=== PATIENT | female | born 1955 | race Caucasian/White ===

== ENCOUNTER 2021-01-21 05:36 | Inpatient (IN) | payer MEDICARE ==
[2021-01-21] MEDS ORDERED: Sodium Chloride 0.9% 10 ML Syringe FLUSH PRN (05:37)
--- NOTE | 2021-01-21 06:00 | EDM.PDOC ---
ED HPI GENERAL MEDICAL PROBLEM - General Chief Complaint: Respiratory Problem Stated Complaint: MEDICAL VIA [place] Time Seen by Provider: 01/21/21 05:37 Source of Information: Reports: Patient, EMS History Limitations: Reports: No Limitations - History of Present Illness INITIAL COMMENTS - FREE TEXT/NARRATIVE: Ysabel is a 65-year-old female presenting to the ED via [facility] for evaluation of generalized weakness, syncopal episode, diarrhea, cough, shortness of breath, headache and body aches, and diminished appetite. The patient's symptoms started shortly after (8 days ago). She had a very large family gathering for the holidays and her was symptomatic with Covid-like symptoms the day before with loss of taste or smell and thought that he simply had a sinus infection. Neither of them are vaccinated for COVID- 19, nor do they take any precautions including masking. This evening, the patient reports that she went to the bathroom because she was having diarrhea and became increasingly weak causing her to have a near syncopal episode and slumped to the floor. Her called 911. Neither of them have been feeling very well since . It is unclear whether the patient actually has had loss of taste or smell as she really has not answered that question despite me asking it several times. 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 - Infectious Disease History Infectious Disease History: Reports: Chicken Pox, Measles, Mumps, Novel Coronavirus - Past Surgical History HEENT Surgical History: Reports: Cataract Surgery, Other (See Below) Other HEENT Surgeries/Procedures: lens implants Musculoskeletal Surgical History: Reports: Other (See Below) Other Musculoskeletal Surgeries/Procedures:: bunions removed, hammer toe surgery Social & Family History - Tobacco Use Tobacco Use Status *Q: Former Tobacco User Used Tobacco, but Quit: Yes Month/Year Tobacco Last Used: 2010 - Caffeine Use Caffeine Use: Reports: Coffee Caffeine Use Comment: 1 cup per day - Alcohol Use Days Per Week of Alcohol Use: 7 Number of Drinks Per Day: 3 Total Drinks Per Week: 21 - Recreational Drug Use Recreational Drug Use: No ED ROS GENERAL - Review of Systems Review Of Systems: See Below Constitutional: Reports: Fever, Chills, Malaise, Weakness, Decreased Appetite HEENT: Reports: No Symptoms Respiratory: Reports: Shortness of Breath, Cough Cardiovascular: Reports: Lightheadedness, Syncope Endocrine: Reports: Fatigue GI/Abdominal: Reports: Abdominal Pain (Generalized), Diarrhea, Decreased Appetite, Nausea. Denies: Vomiting : Reports: No Symptoms Musculoskeletal: Reports: Muscle Pain Skin: Reports: No Symptoms Neurological: Reports: Headache Psychiatric: Reports: Anxiety Hematologic/Lymphatic: Reports: No Symptoms Immunologic: Reports: No Symptoms ED EXAM, GENERAL - Physical Exam Exam: See Below Exam Limited By: No Limitations General Appearance: Alert, Anxious, Mild Distress Eye Exam: Bilateral Eye: EOMI, PERRL Nose: Nasal Swelling, Nasal Drainage Throat/Mouth: Normal Inspection, Normal Oropharynx, Normal Voice, No Airway Compromise Head: Atraumatic, Normocephalic Neck: Normal Inspection, Supple. No: Lymphadenopathy (R), Lymphadenopathy (L) Respiratory/Chest: No Respiratory Distress, No Accessory Muscle Use, Crackles (Diffuse bilateral crackles in the bases), Rhonchi (Bilateral). No: Retractions Cardiovascular: Normal Peripheral Pulses, Regular Rate, Rhythm, No Murmur Peripheral Pulses: 2+: Radial (L), Radial (R) GI/Abdominal: Normal Bowel Sounds, Soft, Non-Tender. No: Guarding, Rigid, Rebound Extremities: Normal Inspection Neurological: Alert, Oriented, Normal Cognition, No Motor/Sensory Deficits Psychiatric: Normal Affect, Anxious Skin Exam: Warm, Dry, Intact, Normal Color #1 Interpretation EKG Date: 01/21/21 Time: 05:49 Rhythm: NSR Rate (Beats/Min): 69 [place]: Normal P-Wave: Present QRS: Normal (Poor R wave progression in the precordial leads) ST-T: Normal QT: Normal Comparison: NA - No Prior EKG Course - Vital Signs Last Recorded V/S: Last Vital Signs Temp 37.4 C 01/21/21 05:44 Pulse 66 01/21/21 07:07 Resp 18 01/21/21 06:39 BP 103/65 01/21/21 07:07 Pulse Ox 93 L 01/21/21 07:07 - Orders/Labs/Meds Orders: Active Orders 24 hr Category Date Time Status Chest 1V Frontal [CR] Stat Exams 01/21/21 05:37 Taken Lactated Ringers [Ringers, Lactated] 1,000 ml Med 01/21/21 06:15 Active IV ASDIRECTED Sodium Chloride 0.9% [Saline Flush] Med 01/21/21 05:37 Active 10 ml FLUSH ASDIRECTED PRN Isolation [COMM] Stat Oth 01/21/21 05:38 Ordered Saline Lock Insert [OM.PC] Routine Oth 01/21/21 05:37 Ordered EKG 12 Lead [EK] Routine Ther 01/21/21 05:39 Ordered Medication Orders Lactated Ringer's (Ringers, Lactated) 1,000 mls @ 500 mls/hr IV ASDIRECTED NANCY Last Admin: 01/21/21 06:27 Dose: 500 mls/hr Documented by: KILO Sodium Chloride (Sodium Chloride 0.9% 10 Ml Syringe) 10 ml FLUSH ASDIRECTED PRN PRN Reason: Keep Vein Open Last Admin: 01/21/21 06:27 Dose: 10 ml Documented by: KILO Labs: Laboratory Tests 01/21/21 01/21/21 01/21/21 Range/Units 05:50 05:50 05:50 WBC 4.3 L (4.5-11.0) K/uL RBC 4.07 (3.30-5.50) M/uL Hgb 12.6 (12.0-15.0) g/dL Hct 36.5 (36.0-48.0) % MCV 90 (80-98) fL MCH 31 (27-31) pg MCHC 35 (32-36) % Plt Count 180 (150-400) K/uL Neut % (Auto) 80.9 H (36-66) % Lymph % (Auto) 14.9 L (24-44) % [place] % (Auto) 3.7 (2-6) % Eos % (Auto) 0.0 L (2-4) % Baso % (Auto) 0.5 (0-1) % D-Dimer, Quantitative 1037.87 H (0.0-500.0) ng/mL Sodium 134 L (140-148) mmol/L Potassium 3.2 L (3.6-5.2) mmol/L Chloride 97 L (100-108) mmol/L Carbon Dioxide 25 (21-32) mmol/L Anion Gap 15.2 H (5.0-14.0) mmol/L BUN 22 H (7-18) mg/dL Creatinine 1.1 H (0.6-1.0) mg/dL Est Cr Clr Drug Dosing 54.40 mL/min Estimated GFR (MDRD) 50 L (>60) Glucose 115 H (74-106) mg/dL Lactic Acid (0.4-2.0) mmol/L Calcium 8.1 L (8.5-10.1) mg/dL Ferritin 657 H (8-388) ng/ml Total Bilirubin 0.3 (0.2-1.0) mg/dL AST 62 H (15-37) U/L ALT 49 (12-78) U/L Alkaline Phosphatase 60 (46-116) U/L Lactate Dehydrogenase 364 H (82-234) U/L C-Reactive Protein 3.93 H (0.0-0.3) mg/dL Total Protein 7.0 (6.4-8.2) g/dL Albumin 3.3 L (3.4-5.0) g/dL Globulin 3.7 H (2.3-3.5) g/dL Albumin/Globulin Ratio 0.9 L (1.2-2.2) Procalcitonin ng/mL Influenza Type A RNA (NEGATIVE) RSV RNA (INAAT) (NEGATIVE) Influenza Type B RNA (NEGATIVE) SARS-CoV-2 RNA (ADRIAN) (NEGATIVE) 01/21/21 01/21/21 01/21/21 Range/Units 05:50 05:50 05:55 WBC (4.5-11.0) K/uL RBC (3.30-5.50) M/uL Hgb (12.0-15.0) g/dL Hct (36.0-48.0) % MCV (80-98) fL MCH (27-31) pg MCHC (32-36) % Plt Count (150-400) K/uL Neut % (Auto) (36-66) % Lymph % (Auto) (24-44) % [place] % (Auto) (2-6) % Eos % (Auto) (2-4) % Baso % (Auto) (0-1) % D-Dimer, Quantitative (0.0-500.0) ng/mL Sodium (140-148) mmol/L Potassium (3.6-5.2) mmol/L Chloride (100-108) mmol/L Carbon Dioxide (21-32) mmol/L Anion Gap (5.0-14.0) mmol/L BUN (7-18) mg/dL Creatinine (0.6-1.0) mg/dL Est Cr Clr Drug Dosing mL/min Estimated GFR (MDRD) (>60) Glucose (74-106) mg/dL Lactic Acid 1.4 (0.4-2.0) mmol/L Calcium (8.5-10.1) mg/dL Ferritin (8-388) ng/ml Total Bilirubin (0.2-1.0) mg/dL AST (15-37) U/L ALT (12-78) U/L Alkaline Phosphatase (46-116) U/L Lactate Dehydrogenase (82-234) U/L C-Reactive Protein (0.0-0.3) mg/dL Total Protein (6.4-8.2) g/dL Albumin (3.4-5.0) g/dL Globulin (2.3-3.5) g/dL Albumin/Globulin Ratio (1.2-2.2) Procalcitonin < 0.05 ng/mL Influenza Type A RNA Negative (NEGATIVE) RSV RNA (INAAT) Negative (NEGATIVE) Influenza Type B RNA Negative (NEGATIVE) SARS-CoV-2 RNA (ADRIAN) Positive H (NEGATIVE) Meds: Medications Generic Name Dose Route Start Last Admin Trade Name Freq PRN Reason Stop Dose Admin Lactated Ringer's 1,000 mls @ 500 mls/hr 01/21/21 06:15 01/21/21 06:27 Ringers, Lactated IV 500 mls/hr ASDIRECTED NANCY Administration Sodium Chloride 10 ml 01/21/21 05:37 01/21/21 06:27 Sodium Chloride 0.9% 10 Ml Syringe FLUSH 10 ml ASDIRECTED PRN Administration Keep Vein Open - Radiology Interpretation Free Text/Narrative:: I reviewed the one-view portable chest x-ray on [facility] showing groundglass opacities in the left base consistent with COVID-19 pneumonitis. - Re-Assessments/Exams Free Text/Narrative Re-Assessment/Exam: 01/21/21 06:48 I reviewed the patient's labs showing a normal CBC with a leukocyte count of 4.3, hemoglobin of 12.6, and platelet count of 180,000. Her comprehensive metabolic panel significant for sodium 134, potassium 3.2, chloride of 97, bicarbonate of 25, BUN of 22 with a creatinine of 1.1 and a glucose of 115. Calcium is 8.1 with an albumin of 2.3. AST is 62, ALT is 49 and alkaline phosphatase is 60. The Covid labs are significant for a lactate of 1.4, LDH of 364, ferritin of 657, D-dimer of 1037, CRP of 3.93 with a pro calcitonin less than 0.05. The patient did test positive for Covid but negative for influenza or RSV. Her chest x-ray did show bilateral groundglass opacities with the largest being in the left base consistent with acute Covid pneumonitis. 01/21/21 07:20 patient off her oxygen and her oxygen saturations dropped down to 88%. At this time patients can require hospitalization for her Covid pneumonitis. I will initiate therapy with the dexamethasone but the patient has refused the remdesivir at this time. Departure - Departure Time of Disposition: 07:21 Disposition: Admitted As Inpatient 65 Clinical Impression: Vasovagal near syncope, COVID-19, Pneumonia due to COVID-19 virus, Dehydration, Hypoxia Diarrhea Qualifiers: Diarrhea type: infectious Qualified Code(s): A09 - Infectious gastroenteritis and colitis, unspecified Hypotension Qualifiers: Hypotension type: hypotension due to hypovolemia Qualified Code(s): I95.89 - Other hypotension; E86.1 - Hypovolemia - Discharge Information Referrals: PCP,None [Primary Care Provider] - Forms: ED Department Discharge Sepsis Event Note (ED) - Evaluation Sepsis Screening Result: No Definite Risk - Focused Exam Vital Signs: Vital Signs Temp Pulse Resp BP Pulse Ox 01/21/21 07:07 66 103/65 93 L 01/21/21 06:39 64 18 100/58 L 95 01/21/21 06:09 68 16 97/41 L 96 01/21/21 06:06 72 16 83/54 L 96 01/21/21 05:44 37.4 C 69 16 105/60 96 - Problem List & Annotations (1) Vasovagal near syncope SNOMED Code(s): 682404625 Code(s): R55 - SYNCOPE AND COLLAPSE Status: Acute Priority: High Current Visit: Yes (2) COVID-19 SNOMED Code(s): 377829486 Code(s): U07.1 - COVID-19 Status: Acute Priority: High Current Visit: Yes (3) Dehydration SNOMED Code(s): 32412094 Code(s): E86.0 - DEHYDRATION Status: Acute Priority: High Current Visit: Yes (4) Diarrhea SNOMED Code(s): 52193275 Code(s): R19.7 - DIARRHEA, UNSPECIFIED Status: Acute Priority: High Current Visit: Yes Qualifiers: Diarrhea type: infectious Qualified Code(s): A09 - Infectious gastroenteritis and colitis, unspecified (5) Pneumonia due to COVID-19 virus SNOMED Code(s): 367200077219545527 Code(s): U07.1 - COVID-19; J12.82 - PNEUMONIA DUE TO CORONAVIRUS DISEASE 2019 Status: Acute Priority: High Current Visit: Yes (6) Hypotension SNOMED Code(s): 65536300 Code(s): I95.9 - HYPOTENSION, UNSPECIFIED Status: Acute Priority: High Current Visit: Yes Qualifiers: Hypotension type: hypotension due to hypovolemia Qualified Code(s): I95.89 - Other hypotension; E86.1 - Hypovolemia (7) Hypoxia SNOMED Code(s): 207134328 Code(s): R09.02 - HYPOXEMIA Status: Acute Priority: High Current Visit: Yes - Problem List Review Problem List Initiated/Reviewed/Updated: Yes - My Orders Last 24 Hours: My Active Orders 01/21/21 05:37 Chest 1V Frontal [CR] Stat Sodium Chloride 0.9% [Saline Flush] 10 ml FLUSH ASDIRECTED PRN Saline Lock Insert [OM.PC] Routine 01/21/21 05:38 Isolation [COMM] Stat 01/21/21 05:39 EKG 12 Lead [EK] Routine 01/21/21 06:15 Lactated Ringers [Ringers, Lactated] 1,000 ml IV ASDIRECTED - Assessment/Plan Last 24 Hours: My Active Orders 01/21/21 05:37 Chest 1V Frontal [CR] Stat Sodium Chloride 0.9% [Saline Flush] 10 ml FLUSH ASDIRECTED PRN Saline Lock Insert [OM.PC] Routine 01/21/21 05:38 Isolation [COMM] Stat 01/21/21 05:39 EKG 12 Lead [EK] Routine 01/21/21 06:15 Lactated Ringers [Ringers, Lactated] 1,000 ml IV ASDIRECTED
[2021-01-21] MEDS ORDERED: Lactated Ringers 1,000 ML IV SCH (06:15)
[2021-01-21 06:43] LABS: CORONAVIRUS COVID-19 NAA POSITIVE (NEGATIVE)
[2021-01-21] MEDS ORDERED: Dexamethasone 4 MG/ML SDV IVPUSH ONE (07:21)
--- NOTE | 2021-01-21 10:48 | PCM.HP.2 ---
H&P History of Present Illness - General Date of Service: 01/21/21 Admit Problem/Dx: Admission Diagnosis/Problem Admission Diagnosis/Problem Pneumonia Source of Information: Patient, Family, Provider History Limitations: Reports: No Limitations - History of Present Illness Initial Comments - Free Text/Narative: CC: I collapsed HPI: Ysabel presents to the emergency room today with progressive shortness of breath, weakness, diarrhea and a syncopal episode this morning. She reports onset of weakness, fatigue, cough and shortness of breath on Friday, 1 week ago. Symptoms progressed throughout the course of the week and have become more and more bothersome. She has a dry cough and some pleuritic type chest pain especially with coughing. Appetite and intake have been poor. She has had multiple watery bowel movements each day with some nausea. Subjective fevers. No headache or sore throat. She does have some myalgias. She collapsed this morning going to the bathroom and this is why the ambulance was summoned. She has not previously been vaccinated. Work-up in the emergency room revealed Covid pneumonia with acute respiratory failure. Initially requiring 4 L of oxygen but has been weaned down since then. She did receive dexamethasone but declined remdesivir. She will be admitted for management of hypoxic respiratory failure in the setting of Covid pneumonia. 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: , 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 - Infectious Disease History Infectious Disease History: Reports: Chicken Pox, Measles, Mumps, Novel Coronavirus - Past Surgical History HEENT Surgical History: Reports: Cataract Surgery, Other (See Below) Other HEENT Surgeries/Procedures: lens implants Musculoskeletal Surgical History: Reports: Other (See Below) Other Musculoskeletal Surgeries/Procedures:: bunions removed, hammer toe surgery Social & Family History - Family History Neurological: Reports: CVA (mom in 80's and dad in 70's) - Tobacco Use Tobacco Use Status *Q: Former Tobacco User Used Tobacco, but Quit: Yes Month/Year Tobacco Last Used: 2010 - Caffeine Use Caffeine Use: Reports: Coffee Caffeine Use Comment: 1 cup per day - Alcohol Use Alcohol Use History: Yes Days Per Week of Alcohol Use: 7 Number of Drinks Per Day: 3 Total Drinks Per Week: 21 Alcohol Use in Last Twelve Months: Yes Alcohol Use Frequency: Daily - Recreational Drug Use Recreational Drug Use: No H&P Review of Systems - Review of Systems: Review Of Systems: See Below Free Text/Narrative: A complete 12 point review of systems was obtained. Pertinent positives and negatives are noted in the history of present illness. All other systems were reviewed and were negative except as noted. Exam - Exam Exam: See Below - Vital Signs Vital Signs: Last Vital Signs Temp 37.4 C 01/21/21 05:44 Pulse 78 01/21/21 09:27 Resp 18 01/21/21 06:39 BP 110/59 L 01/21/21 09:27 Pulse Ox 93 L 01/21/21 09:27 Weight: 81.647 kg - Exam Quality Assessment: Supplemental Oxygen General: Alert, Oriented, Cooperative. No: Mild Distress HEENT: Conjunctiva Clear. No: Mucosa Moist & [place] (dry), Scleral Icterus Neck: Supple, Trachea Midline. No: Lymphadenopathy Lungs: Normal Respiratory Effort, Crackles (moderate both lower lungs and mild both mid lungs) Cardiovascular: Regular Rate, Regular Rhythm, Systolic Murmur (mild ALIYAH RUSB) GI/Abdominal Exam: Normal Bowel Sounds, Soft, Non-Tender, No Distention Back Exam: Normal Inspection, Full Range of Motion Extremities: No Pedal Edema. No: Increased Warmth Peripheral Pulses: 1+: Dorsalis Pedis (L), Dorsalis Pedis (R) Skin: Warm, Dry, Ecchymosis (small under toenail of left great toe ) Neuro Extensive - Mental Status: Alert, Oriented x3, Nl Response to Commands Neuro Extensive - Motor, Sensory, Reflexes: No: Dysarthria, Abnormal Motor, Tremor Psychiatric: Alert, Normal Affect - Patient Data Lab Results Last 24 hrs: Laboratory Results - last 24 hr 01/21/21 01/21/21 01/21/21 Range/Units 05:50 05:50 05:50 WBC 4.3 L (4.5-11.0) K/uL RBC 4.07 (3.30-5.50) M/uL Hgb 12.6 (12.0-15.0) g/dL Hct 36.5 (36.0-48.0) % MCV 90 (80-98) fL MCH 31 (27-31) pg MCHC 35 (32-36) % Plt Count 180 (150-400) K/uL Neut % (Auto) 80.9 H (36-66) % Lymph % (Auto) 14.9 L (24-44) % [place] % (Auto) 3.7 (2-6) % Eos % (Auto) 0.0 L (2-4) % Baso % (Auto) 0.5 (0-1) % D-Dimer, Quantitative 1037.87 H (0.0-500.0) ng/mL Sodium 134 L (140-148) mmol/L Potassium 3.2 L (3.6-5.2) mmol/L Chloride 97 L (100-108) mmol/L Carbon Dioxide 25 (21-32) mmol/L Anion Gap 15.2 H (5.0-14.0) mmol/L BUN 22 H (7-18) mg/dL Creatinine 1.1 H (0.6-1.0) mg/dL Est Cr Clr Drug Dosing 54.40 mL/min Estimated GFR (MDRD) 50 L (>60) Glucose 115 H (74-106) mg/dL Lactic Acid (0.4-2.0) mmol/L Calcium 8.1 L (8.5-10.1) mg/dL Ferritin 657 H (8-388) ng/ml Total Bilirubin 0.3 (0.2-1.0) mg/dL AST 62 H (15-37) U/L ALT 49 (12-78) U/L Alkaline Phosphatase 60 (46-116) U/L Lactate Dehydrogenase 364 H (82-234) U/L C-Reactive Protein 3.93 H (0.0-0.3) mg/dL Total Protein 7.0 (6.4-8.2) g/dL Albumin 3.3 L (3.4-5.0) g/dL Globulin 3.7 H (2.3-3.5) g/dL Albumin/Globulin Ratio 0.9 L (1.2-2.2) Procalcitonin ng/mL Influenza Type A RNA (NEGATIVE) RSV RNA (INAAT) (NEGATIVE) Influenza Type B RNA (NEGATIVE) SARS-CoV-2 RNA (ADRIAN) (NEGATIVE) 01/21/21 01/21/21 01/21/21 Range/Units 05:50 05:50 05:55 WBC (4.5-11.0) K/uL RBC (3.30-5.50) M/uL Hgb (12.0-15.0) g/dL Hct (36.0-48.0) % MCV (80-98) fL MCH (27-31) pg MCHC (32-36) % Plt Count (150-400) K/uL Neut % (Auto) (36-66) % Lymph % (Auto) (24-44) % [place] % (Auto) (2-6) % Eos % (Auto) (2-4) % Baso % (Auto) (0-1) % D-Dimer, Quantitative (0.0-500.0) ng/mL Sodium (140-148) mmol/L Potassium (3.6-5.2) mmol/L Chloride (100-108) mmol/L Carbon Dioxide (21-32) mmol/L Anion Gap (5.0-14.0) mmol/L BUN (7-18) mg/dL Creatinine (0.6-1.0) mg/dL Est Cr Clr Drug Dosing mL/min Estimated GFR (MDRD) (>60) Glucose (74-106) mg/dL Lactic Acid 1.4 (0.4-2.0) mmol/L Calcium (8.5-10.1) mg/dL Ferritin (8-388) ng/ml Total Bilirubin (0.2-1.0) mg/dL AST (15-37) U/L ALT (12-78) U/L Alkaline Phosphatase (46-116) U/L Lactate Dehydrogenase (82-234) U/L C-Reactive Protein (0.0-0.3) mg/dL Total Protein (6.4-8.2) g/dL Albumin (3.4-5.0) g/dL Globulin (2.3-3.5) g/dL Albumin/Globulin Ratio (1.2-2.2) Procalcitonin < 0.05 ng/mL Influenza Type A RNA Negative (NEGATIVE) RSV RNA (INAAT) Negative (NEGATIVE) Influenza Type B RNA Negative (NEGATIVE) SARS-CoV-2 RNA (ADRIAN) Positive H (NEGATIVE) Result Diagrams: 01/21/21 05:50 01/21/21 05:50 Imaging Impressions Last 24 hrs: CXR-image personally reviewed-there is a patchy left lower lung infiltrate. No mass or effusion. heart size normal. #1 Interpretation EKG Date: 01/21/21 Rhythm: NSR Rate (Beats/Min): 69 [place]: Normal P-Wave: Present QRS: Normal ST-T: Normal QT: Normal TX/PQ Interval: normal Comparison: NA - No Prior EKG EKG Interpretation Comments: image personally reviewed Sepsis Event Note - Evaluation Sepsis Screening Result: No Definite Risk - Focused Exam Vital Signs: Vital Signs Temp Pulse Resp BP Pulse Ox 01/21/21 09:27 78 110/59 L 93 L 01/21/21 08:57 78 106/62 92 L 01/21/21 08:00 68 102/54 L 93 L 01/21/21 07:07 66 103/65 93 L 01/21/21 06:39 64 18 100/58 L 95 01/21/21 06:09 68 16 97/41 L 96 01/21/21 06:06 72 16 83/54 L 96 01/21/21 05:44 37.4 C 69 16 105/60 96 *Q Meaningful Use (ADM) - VTE Risk Assess *Q Each Risk Factor Represents 1 Point: Obesity ( BMI > 25 kg/m2), Serious lung disease including pneumonia Total Score 1 Point Risk Factors: 2 Each Risk Factor Represents 2 Points: Age 60 - 74 Years Total Score 2 Point Risk Factors: 2 Each Risk Factor Represents 3 Points: None Total Score 3 Point Risk Factors: 0 Each Risk Factor Represents 5 Points: None Total Score 5 Point Risk Factors: 0 Venous Thromboembolism Risk Factor Score *Q: 4 - Problem List (1) Pneumonia due to COVID-19 virus SNOMED Code(s): 250505211021997122 ICD Code: U07.1 - COVID-19; J12.82 - PNEUMONIA DUE TO CORONAVIRUS DISEASE 2019 Status: Acute Priority: High Current Visit: Yes (2) Acute respiratory failure due to COVID-19 SNOMED Code(s): 062860704 ICD Code: U07.1 - COVID-19; J96.00 - ACUTE RESPIRATORY FAILURE, UNSP W HYPOXIA OR HYPERCAPNIA Status: Acute Current Visit: Yes (3) Essential hypertension SNOMED Code(s): 16445192 ICD Code: I10 - ESSENTIAL (PRIMARY) HYPERTENSION Status: Chronic Current Visit: Yes (4) Glaucoma SNOMED Code(s): 83106590 ICD Code: H40.9 - UNSPECIFIED GLAUCOMA Status: Chronic Current Visit: Yes Qualifiers: Glaucoma type: unspecified Laterality: left Qualified Code(s): H40.9 - Unspecified glaucoma Problem List Initiated/Reviewed/Updated: Yes Orders Last 24hrs: Active Orders 24 hr Category Date Time Status Patient Status Manage Transfer [TRANSFER] Routine ADT 01/21/21 10:38 Ordered Chest 1V Frontal [CR] Stat Exams 01/21/21 05:37 Taken Lactated Ringers [Ringers, Lactated] 1,000 ml Med 01/21/21 06:15 Active IV ASDIRECTED Sodium Chloride 0.9% [Saline Flush] Med 01/21/21 05:37 Active 10 ml FLUSH ASDIRECTED PRN Isolation [COMM] Stat Oth 01/21/21 05:38 Ordered Saline Lock Insert [OM.PC] Routine Oth 01/21/21 05:37 Ordered Resuscitation Status Routine Resus Stat 01/21/21 10:39 Ordered EKG 12 Lead [EK] Routine Ther 01/21/21 05:39 Ordered Medication Orders Lactated Ringer's (Ringers, Lactated) 1,000 mls @ 500 mls/hr IV ASDIRECTED NANCY Last Admin: 01/21/21 06:27 Dose: 500 mls/hr Documented by: KILO Sodium Chloride (Sodium Chloride 0.9% 10 Ml Syringe) 10 ml FLUSH ASDIRECTED PRN PRN Reason: Keep Vein Open Last Admin: 01/21/21 06:27 Dose: 10 ml Documented by: KILO Assessment/Plan Comment:: ASSESSMENT AND PLAN - COVID-19 pneumonia-complicated by acute respiratory failure with hypoxia. Mild changes on the chest x-ray but more impressive crackles noted on examination. Only mildly hypoxic at this time but I think she has a high risk of progressing to more severe disease. Moderate elevation of D-dimer and mild CRP elevation. -Dexamethasone every 24 hours -Enoxaparin -Symptomatic management of cough and diarrhea -CRP and D-dimer every 2 days -Patient declined remdesivir -Covid isolation (symptom onset 01/14) Essential hypertension-blood pressure on the low side. -Hold home medication Maintenance issues - -DVT prophylaxis-enoxaparin -GI prophylaxis-not indicated -Nutrition-regular -[place]jo catheter-not indicated CODE STATUS -full code Admission justification -this patient will be admitted for inpatient services and is medically appropriate meeting medical necessity for inpatient admission as outlined in my documentation. I reasonably expect the patient will require inpatient services that span a period time over 2 midnights. I reasonably expect this patient to be discharged or transferred within 96 hours [facility]. Disposition -I anticipate discharge home after the hospital stay Primary care provider-ZAC Jung M.D. - Mortality Measure Prognosis:: Good
[2021-01-21] MEDS ORDERED: Benzonatate 100 MG Cap PO PRN (11:20)
[2021-01-21] MEDS ORDERED: Ondansetron 4 MG/2 ML SDV IV PRN (11:20)
[2021-01-21] MEDS ORDERED: Melatonin 3 MG Tab PO PRN (11:20)
[2021-01-21] MEDS ORDERED: Loperamide 2 MG Cap PO PRN (11:20)
[2021-01-21] MEDS ORDERED: guaiFENesin/Dextromethorphan 100-10 MG/5 ML Soln 10 ML Cup PO PRN (11:20)
[2021-01-21] MEDS ORDERED: LORazepam 2 MG/ML SDV IVPUSH PRN (11:20)
[2021-01-21] MEDS ORDERED: traMADol 50 MG Tab PO PRN (11:20)
[2021-01-21] MEDS ORDERED: Ondansetron 4 MG Tab.DIS PO PRN (11:20)
[2021-01-21] MEDS ORDERED: Acetaminophen 325 MG Tab PO PRN (11:20)
[2021-01-21] MEDS: Enoxaparin 40 MG/0.4 ML Syringe SUBCUT SCH (13:48)
[2021-01-21] MEDS: Dorzolamide 2% Ophth Soln 10 ML Bottle EYELF SCH ×2 (13:48→20:27)
[2021-01-21] MEDS: Latanoprost 0.005% Ophth Soln 2.5 ML Bottle EYEBOTH SCH (20:26)
[2021-01-22] MEDS: Dexamethasone 4 MG/ML SDV IVPUSH SCH (07:36)
[2021-01-22] MEDS ORDERED: Potassium Chloride 20 MEQ Tab.ER PO ONE (10:00)
[2021-01-22] MEDS: Dorzolamide 2% Ophth Soln 10 ML Bottle EYELF SCH ×3 (10:14→20:58)
--- NOTE | 2021-01-22 10:41 | CR ---
CHEST: Portable 01/21/2021 at 6:06 AM CLINICAL HISTORY:Weakness COMPARISON:None FINDINGS: There is patchy infiltrate in the left lower lobe. There is a minimal increase in the right basal lung markings which may be infiltrate or patchy atelectasis. Impression: Bibasilar airspace disease left greater than right. This likely represents pneumonic infiltrate or pneumonitis
--- NOTE | 2021-01-22 14:03 | PCM.PN ---
- General Info Date of Service: 01/22/21 Subjective Update: Ms. Suarez has required modest increase in supplemental oxygen since admission, currently on 5 L/min via nasal cannula. She is comfortable with this range of supplemental oxygen and has had adequate saturations. Otherwise reports that she is feeling fairly comfortable and has no other specific complaints or concerns. Functional Status: Reports: Urinating - Review of Systems General: Reports: Weakness, Fatigue. Denies: Fever, Chills Pulmonary: Reports: Shortness of Breath. Denies: Pleuritic Chest Pain, Cough, Sputum, Hemoptysis, Wheezing Cardiovascular: Reports: Dyspnea on Exertion. Denies: Chest Pain, Palpitations, Orthopnea, PND, Edema, Lightheadedness Gastrointestinal: Reports: No Symptoms Genitourinary: Reports: No Symptoms - Patient Data Vitals - Most Recent: Last Vital Signs Temp 97.9 F 01/22/21 11:00 Pulse 65 01/22/21 11:00 Resp 16 01/22/21 11:00 BP 119/71 01/22/21 11:00 Pulse Ox 93 L 01/22/21 11:00 Weight - Most Recent: 177 lb I&O - Last 24 Hours: Intake & Output 01/21/21 01/22/21 01/22/21 22:59 06:59 14:59 Intake Total 600 Output Total 1101 800 Balance -501 -800 Lab Results Last 24 Hours: Laboratory Results - last 24 hr 01/22/21 01/22/21 Range/Units 05:00 05:00 WBC 6.2 (4.5-11.0) K/uL RBC 4.02 (3.30-5.50) M/uL Hgb 12.5 (12.0-15.0) g/dL Hct 35.6 L (36.0-48.0) % MCV 89 (80-98) fL MCH 31 (27-31) pg MCHC 35 (32-36) % Plt Count 204 (150-400) K/uL Sodium 136 L (140-148) mmol/L Potassium 3.3 L (3.6-5.2) mmol/L Chloride 100 (100-108) mmol/L Carbon Dioxide 28 (21-32) mmol/L Anion Gap 11.3 (5.0-14.0) mmol/L BUN 16 (7-18) mg/dL Creatinine 0.8 (0.6-1.0) mg/dL Est Cr Clr Drug Dosing 74.80 mL/min Estimated GFR (MDRD) > 60 (>60) Glucose 115 H (74-106) mg/dL Calcium 8.5 (8.5-10.1) mg/dL Med Orders - Current: Current Medications Acetaminophen (Acetaminophen 325 Mg Tab) 650 mg PO Q4H PRN PRN Reason: Pain (Mild 1-3)/fever Benzonatate (Benzonatate 100 Mg Cap) 100 mg PO TID PRN PRN Reason: Cough Dexamethasone (Dexamethasone 4 Mg/Ml Sdv) 6 mg IVPUSH Q24H [facility] Last Admin: 01/22/21 07:36 Dose: 6 mg Documented by: Dorzolamide HCl (Dorzolamide 2% Ophth Soln 10 Ml Bottle) 0 ml EYELF TID [facility] Last Admin: 01/22/21 10:14 Dose: 1 drop Documented by: Enoxaparin Sodium (Enoxaparin 40 Mg/0.4 Ml Syringe) 40 mg SUBCUT Q24H [facility] Last Admin: 01/21/21 13:48 Dose: 40 mg Documented by: Guaifenesin/Dextromethorphan (Guaifenesin/Dextromethorphan 100-10 Mg/5 Ml Soln 10 Ml Cup) 10 ml PO Q4H PRN PRN Reason: Cough Latanoprost (Latanoprost 0.005% Ophth Soln 2.5 Ml Bottle) 0 ml EYEBOTH BEDTIME [facility] Last Admin: 01/21/21 20:26 Dose: 2 drop Documented by: Loperamide HCl (Loperamide 2 Mg Cap) 2 mg PO Q4H PRN PRN Reason: Diarrhea Lorazepam (Lorazepam 2 Mg/Ml Sdv) 0.5 mg IVPUSH Q4H PRN PRN Reason: Nausea/Vomiting Melatonin (Melatonin 3 Mg Tab) 9 mg PO BEDTIME PRN PRN Reason: Sleep Ondansetron HCl (Ondansetron 4 Mg/2 Ml Sdv) 4 mg IV Q6H PRN PRN Reason: Nausea/Vomiting Ondansetron HCl (Ondansetron 4 Mg Tab.Dis) 4 mg PO Q6H PRN PRN Reason: Nausea able to take PO Sodium Chloride (Sodium Chloride 0.9% 10 Ml Syringe) 10 ml FLUSH ASDIRECTED PRN PRN Reason: Keep Vein Open Last Admin: 01/21/21 06:27 Dose: 10 ml Documented by: Tramadol HCl (Tramadol 50 Mg Tab) 50 mg PO Q6H PRN PRN Reason: Pain (moderate 4-6) Discontinued Medications Dexamethasone (Dexamethasone 4 Mg/Ml Sdv) 6 mg IVPUSH ONETIME ONE Stop: 01/21/21 07:22 Last Admin: 01/21/21 07:53 Dose: 6 mg Documented by: Lactated Ringer's (Ringers, Lactated) 1,000 mls @ 500 mls/hr IV ASDIRECTED [facility] Last Admin: 01/21/21 06:27 Dose: 500 mls/hr Documented by: Potassium Chloride (Potassium Chloride 20 Meq Tab.Er) 40 meq PO ONETIME ONE Stop: 01/22/21 10:01 Last Admin: 01/22/21 10:14 Dose: 40 meq Documented by: - Exam Quality Assessment: Supplemental Oxygen, DVT Prophylaxis General: Alert, Oriented, Cooperative, Mild Distress Lungs: Normal Respiratory Effort, Crackles. No: Rales, Rhonchi, Wheezing Cardiovascular: Regular Rate, Regular Rhythm, No Murmurs GI/Abdominal Exam: Soft, Non-Tender, No Organomegaly, No Distention Extremities: Non-Tender, No Pedal Edema - Patient Data Lab Results Last 24 hrs: Laboratory Results - last 24 hr 01/22/21 01/22/21 Range/Units 05:00 05:00 WBC 6.2 (4.5-11.0) K/uL RBC 4.02 (3.30-5.50) M/uL Hgb 12.5 (12.0-15.0) g/dL Hct 35.6 L (36.0-48.0) % MCV 89 (80-98) fL MCH 31 (27-31) pg MCHC 35 (32-36) % Plt Count 204 (150-400) K/uL Sodium 136 L (140-148) mmol/L Potassium 3.3 L (3.6-5.2) mmol/L Chloride 100 (100-108) mmol/L Carbon Dioxide 28 (21-32) mmol/L Anion Gap 11.3 (5.0-14.0) mmol/L BUN 16 (7-18) mg/dL Creatinine 0.8 (0.6-1.0) mg/dL Est Cr Clr Drug Dosing 74.80 mL/min Estimated GFR (MDRD) > 60 (>60) Glucose 115 H (74-106) mg/dL Calcium 8.5 (8.5-10.1) mg/dL Result Diagrams: 01/22/21 05:00 01/22/21 05:00 Sepsis Event Note - Evaluation Sepsis Screening Result: No Definite Risk - Focused Exam Vital Signs: Vital Signs Temp Pulse Resp BP BP Pulse Ox 01/22/21 11:00 97.9 F 65 16 119/71 93 L 01/22/21 07:32 96.7 F L 59 L 16 94/62 95 01/22/21 03:23 96.7 F L 60 16 105/69 96 - Problem List Review Problem List Initiated/Reviewed/Updated: Yes - My Orders Last 24 Hours: My Active Orders 01/23/21 05:00 CBC WITH AUTO DIFF [HEME] Timed COMPREHENSIVE METABOLIC PN,CMP [CHEM] Timed 01/23/21 05:11 CRP [C-REACTIVE PROTEIN] [CHEM] AM D Dimer [D-DIMER QUANTITATIVE] [COAG] AM - Plan Plan:: ASSESSMENT AND PLAN COVID-19 pneumonia-complicated by acute respiratory failure with hypoxia. She has required an increase in supplemental oxygen since admission yesterday -Dexamethasone every 24 hours -Enoxaparin -Symptomatic management of cough and diarrhea -CRP and D-dimer every 2 days -Patient declined remdesivir -Covid isolation (symptom onset 01/14) Essential hypertension-blood pressure within normal range -Hold home medication Maintenance issues - -DVT prophylaxis-enoxaparin -GI prophylaxis-not indicated -Nutrition-regular -Cornejo catheter-not indicated CODE STATUS -full code Admission justification -this patient will be admitted for inpatient services and is medically appropriate meeting medical necessity for inpatient admission as outlined in my documentation. I reasonably expect the patient will require inpatient services that span a period time over 2 midnights. I reasonably expect this patient to be discharged or transferred within 96 hours [facility] Disposition -I anticipate discharge home after the hospital stay Primary care provider-Karen Key NP
[2021-01-22] MEDS: Enoxaparin 40 MG/0.4 ML Syringe SUBCUT SCH (14:34)
[2021-01-22] MEDS: Latanoprost 0.005% Ophth Soln 2.5 ML Bottle EYEBOTH SCH (20:58)
[2021-01-23] MEDS: Dexamethasone 4 MG/ML SDV IVPUSH SCH (07:42)
[2021-01-23] MEDS: Dorzolamide 2% Ophth Soln 10 ML Bottle EYELF SCH ×3 (09:00→21:02)
[2021-01-23] MEDS: Enoxaparin 40 MG/0.4 ML Syringe SUBCUT SCH (14:05)
--- NOTE | 2021-01-23 16:19 | PCM.PN ---
- General Info Date of Service: 01/23/21 Subjective Update: Ms. Suarez has remained stable since yesterday with no significant increase in oxygen requirements. Subjectively feels improved with better strength and improved appetite. She is also noted less shortness of breath with activity. Functional Status: Reports: Tolerating Diet, Ambulating, Urinating - Review of Systems General: Reports: Weakness, Fatigue. Denies: Fever, Chills Pulmonary: Reports: Shortness of Breath. Denies: Pleuritic Chest Pain, Cough, Sputum, Hemoptysis, Wheezing Cardiovascular: Reports: Dyspnea on Exertion. Denies: Chest Pain, Palpitations, Orthopnea, PND, Edema, Lightheadedness Gastrointestinal: Reports: No Symptoms Genitourinary: Reports: No Symptoms - Patient Data Vitals - Most Recent: Last Vital Signs Temp 96.5 F L 01/23/21 14:00 Pulse 68 01/23/21 14:00 Resp 18 01/23/21 14:00 BP 114/68 01/23/21 14:00 Pulse Ox 94 L 01/23/21 14:00 Weight - Most Recent: 177 lb I&O - Last 24 Hours: Intake & Output 01/23/21 01/23/21 01/23/21 06:59 14:59 22:59 Intake Total 800 Balance 800 Lab Results Last 24 Hours: Laboratory Results - last 24 hr 01/23/21 01/23/21 01/23/21 Range/Units 04:15 04:15 04:15 WBC 8.6 (4.5-11.0) K/uL RBC 3.77 (3.30-5.50) M/uL Hgb 11.9 L (12.0-15.0) g/dL Hct 34.0 L (36.0-48.0) % MCV 90 (80-98) fL MCH 32 H (27-31) pg MCHC 35 (32-36) % Plt Count 238 (150-400) K/uL Neut % (Auto) 85.0 H (36-66) % Lymph % (Auto) 10.5 L (24-44) % [place] % (Auto) 4.2 (2-6) % Eos % (Auto) 0.0 L (2-4) % Baso % (Auto) 0.3 (0-1) % D-Dimer, Quantitative 671.49 H (0.0-500.0) ng/mL Sodium 138 L (140-148) mmol/L Potassium 3.7 (3.6-5.2) mmol/L Chloride 101 (100-108) mmol/L Carbon Dioxide 26 (21-32) mmol/L Anion Gap 14.7 H (5.0-14.0) mmol/L BUN 18 (7-18) mg/dL Creatinine 0.9 (0.6-1.0) mg/dL Est Cr Clr Drug Dosing 66.49 mL/min Estimated GFR (MDRD) > 60 (>60) Glucose 125 H (74-106) mg/dL Calcium 8.5 (8.5-10.1) mg/dL Total Bilirubin 0.4 (0.2-1.0) mg/dL AST 65 H (15-37) U/L ALT 72 (12-78) U/L Alkaline Phosphatase 54 (46-116) U/L C-Reactive Protein (0.0-0.3) mg/dL Total Protein 6.7 (6.4-8.2) g/dL Albumin 2.9 L (3.4-5.0) g/dL Globulin 3.8 H (2.3-3.5) g/dL Albumin/Globulin Ratio 0.8 L (1.2-2.2) 01/23/21 Range/Units 04:15 WBC (4.5-11.0) K/uL RBC (3.30-5.50) M/uL Hgb (12.0-15.0) g/dL Hct (36.0-48.0) % MCV (80-98) fL MCH (27-31) pg MCHC (32-36) % Plt Count (150-400) K/uL Neut % (Auto) (36-66) % Lymph % (Auto) (24-44) % [place] % (Auto) (2-6) % Eos % (Auto) (2-4) % Baso % (Auto) (0-1) % D-Dimer, Quantitative (0.0-500.0) ng/mL Sodium (140-148) mmol/L Potassium (3.6-5.2) mmol/L Chloride (100-108) mmol/L Carbon Dioxide (21-32) mmol/L Anion Gap (5.0-14.0) mmol/L BUN (7-18) mg/dL Creatinine (0.6-1.0) mg/dL Est Cr Clr Drug Dosing mL/min Estimated GFR (MDRD) (>60) Glucose (74-106) mg/dL Calcium (8.5-10.1) mg/dL Total Bilirubin (0.2-1.0) mg/dL AST (15-37) U/L ALT (12-78) U/L Alkaline Phosphatase (46-116) U/L C-Reactive Protein 2.17 H (0.0-0.3) mg/dL Total Protein (6.4-8.2) g/dL Albumin (3.4-5.0) g/dL Globulin (2.3-3.5) g/dL Albumin/Globulin Ratio (1.2-2.2) Med Orders - Current: Current Medications Acetaminophen (Acetaminophen 325 Mg Tab) 650 mg PO Q4H PRN PRN Reason: Pain (Mild 1-3)/fever Benzonatate (Benzonatate 100 Mg Cap) 100 mg PO TID PRN PRN Reason: Cough Dexamethasone (Dexamethasone 4 Mg/Ml Sdv) 6 mg IVPUSH Q24H [facility] Last Admin: 01/23/21 07:42 Dose: 6 mg Documented by: Dorzolamide HCl (Dorzolamide 2% Ophth Soln 10 Ml Bottle) 0 ml EYELF TID [facility] Last Admin: 01/23/21 14:05 Dose: 1 drop Documented by: Enoxaparin Sodium (Enoxaparin 40 Mg/0.4 Ml Syringe) 40 mg SUBCUT Q24H [facility] Last Admin: 01/23/21 14:05 Dose: 40 mg Documented by: Guaifenesin/Dextromethorphan (Guaifenesin/Dextromethorphan 100-10 Mg/5 Ml Soln 10 Ml Cup) 10 ml PO Q4H PRN PRN Reason: Cough Latanoprost (Latanoprost 0.005% Ophth Soln 2.5 Ml Bottle) 0 ml EYEBOTH BEDTIME [facility] Last Admin: 01/22/21 20:58 Dose: 1 drop Documented by: Loperamide HCl (Loperamide 2 Mg Cap) 2 mg PO Q4H PRN PRN Reason: Diarrhea Lorazepam (Lorazepam 2 Mg/Ml Sdv) 0.5 mg IVPUSH Q4H PRN PRN Reason: Nausea/Vomiting Melatonin (Melatonin 3 Mg Tab) 9 mg PO BEDTIME PRN PRN Reason: Sleep Ondansetron HCl (Ondansetron 4 Mg/2 Ml Sdv) 4 mg IV Q6H PRN PRN Reason: Nausea/Vomiting Ondansetron HCl (Ondansetron 4 Mg Tab.Dis) 4 mg PO Q6H PRN PRN Reason: Nausea able to take PO Sodium Chloride (Sodium Chloride 0.9% 10 Ml Syringe) 10 ml FLUSH ASDIRECTED PRN PRN Reason: Keep Vein Open Last Admin: 01/21/21 06:27 Dose: 10 ml Documented by: Tramadol HCl (Tramadol 50 Mg Tab) 50 mg PO Q6H PRN PRN Reason: Pain (moderate 4-6) Discontinued Medications Dexamethasone (Dexamethasone 4 Mg/Ml Sdv) 6 mg IVPUSH ONETIME ONE Stop: 01/21/21 07:22 Last Admin: 01/21/21 07:53 Dose: 6 mg Documented by: Lactated Ringer's (Ringers, Lactated) 1,000 mls @ 500 mls/hr IV ASDIRECTED [facility]ANC[facility] Last Admin: 01/21/21 06:27 Dose: 500 mls/hr Documented by: Potassium Chloride (Potassium Chloride 20 Meq Tab.Er) 40 meq PO ONETIME ONE Stop: 01/22/21 10:01 Last Admin: 01/22/21 10:14 Dose: 40 meq Documented by: - Exam Quality Assessment: Supplemental Oxygen, DVT Prophylaxis General: Alert, Oriented, Cooperative, Mild Distress Lungs: Crackles. No: Rales, Rhonchi, Wheezing Cardiovascular: Regular Rate, Regular Rhythm, No Murmurs GI/Abdominal Exam: Soft, Non-Tender, No Organomegaly, No Distention Extremities: Non-Tender, No Pedal Edema - Patient Data Lab Results Last 24 hrs: Laboratory Results - last 24 hr 01/23/21 01/23/21 01/23/21 Range/Units 04:15 04:15 04:15 WBC 8.6 (4.5-11.0) K/uL RBC 3.77 (3.30-5.50) M/uL Hgb 11.9 L (12.0-15.0) g/dL Hct 34.0 L (36.0-48.0) % MCV 90 (80-98) fL MCH 32 H (27-31) pg MCHC 35 (32-36) % Plt Count 238 (150-400) K/uL Neut % (Auto) 85.0 H (36-66) % Lymph % (Auto) 10.5 L (24-44) % [place] % (Auto) 4.2 (2-6) % Eos % (Auto) 0.0 L (2-4) % Baso % (Auto) 0.3 (0-1) % D-Dimer, Quantitative 671.49 H (0.0-500.0) ng/mL Sodium 138 L (140-148) mmol/L Potassium 3.7 (3.6-5.2) mmol/L Chloride 101 (100-108) mmol/L Carbon Dioxide 26 (21-32) mmol/L Anion Gap 14.7 H (5.0-14.0) mmol/L BUN 18 (7-18) mg/dL Creatinine 0.9 (0.6-1.0) mg/dL Est Cr Clr Drug Dosing 66.49 mL/min Estimated GFR (MDRD) > 60 (>60) Glucose 125 H (74-106) mg/dL Calcium 8.5 (8.5-10.1) mg/dL Total Bilirubin 0.4 (0.2-1.0) mg/dL AST 65 H (15-37) U/L ALT 72 (12-78) U/L Alkaline Phosphatase 54 (46-116) U/L C-Reactive Protein (0.0-0.3) mg/dL Total Protein 6.7 (6.4-8.2) g/dL Albumin 2.9 L (3.4-5.0) g/dL Globulin 3.8 H (2.3-3.5) g/dL Albumin/Globulin Ratio 0.8 L (1.2-2.2) 01/23/21 Range/Units 04:15 WBC (4.5-11.0) K/uL RBC (3.30-5.50) M/uL Hgb (12.0-15.0) g/dL Hct (36.0-48.0) % MCV (80-98) fL MCH (27-31) pg MCHC (32-36) % Plt Count (150-400) K/uL Neut % (Auto) (36-66) % Lymph % (Auto) (24-44) % [place] % (Auto) (2-6) % Eos % (Auto) (2-4) % Baso % (Auto) (0-1) % D-Dimer, Quantitative (0.0-500.0) ng/mL Sodium (140-148) mmol/L Potassium (3.6-5.2) mmol/L Chloride (100-108) mmol/L Carbon Dioxide (21-32) mmol/L Anion Gap (5.0-14.0) mmol/L BUN (7-18) mg/dL Creatinine (0.6-1.0) mg/dL Est Cr Clr Drug Dosing mL/min Estimated GFR (MDRD) (>60) Glucose (74-106) mg/dL Calcium (8.5-10.1) mg/dL Total Bilirubin (0.2-1.0) mg/dL AST (15-37) U/L ALT (12-78) U/L Alkaline Phosphatase (46-116) U/L C-Reactive Protein 2.17 H (0.0-0.3) mg/dL Total Protein (6.4-8.2) g/dL Albumin (3.4-5.0) g/dL Globulin (2.3-3.5) g/dL Albumin/Globulin Ratio (1.2-2.2) Result Diagrams: 01/23/21 04:15 01/23/21 04:15 Sepsis Event Note - Evaluation Sepsis Screening Result: No Definite Risk - Focused Exam Vital Signs: Vital Signs Temp Pulse Resp BP Pulse Ox 01/23/21 14:00 96.5 F L 68 18 114/68 94 L 01/23/21 07:53 97.6 F 63 18 110/72 90 L - Problem List Review Problem List Initiated/Reviewed/Updated: Yes - Plan Plan:: ASSESSMENT AND PLAN COVID-19 pneumonia-complicated by acute respiratory failure with hypoxia. Oxygenation has been stable since yesterday. -Dexamethasone every 24 hours -Enoxaparin -Symptomatic management of cough and diarrhea -CRP and D-dimer every 2 days -Patient declined remdesivir -Covid isolation (symptom onset 01/14) Essential hypertension-blood pressure within normal range -Hold home medication Maintenance issues - -DVT prophylaxis-enoxaparin -GI prophylaxis-not indicated -Nutrition-regular -Cornejo catheter-not indicated CODE STATUS -full code Admission justification -this patient will be admitted for inpatient services and is medically appropriate meeting medical necessity for inpatient admission as outlined in my documentation. I reasonably expect the patient will require inpatient services that span a period time over 2 midnights. I reasonably expect this patient to be discharged or transferred within 96 hours [facility] Disposition -I anticipate discharge home after the hospital stay Primary care provider-Karen Key NP
[2021-01-23] MEDS: Latanoprost 0.005% Ophth Soln 2.5 ML Bottle EYEBOTH SCH (21:02)
[2021-01-24] MEDS: Dexamethasone 4 MG/ML SDV IVPUSH SCH (07:36)
[2021-01-24] MEDS: Dorzolamide 2% Ophth Soln 10 ML Bottle EYELF SCH ×3 (09:15→21:00)
[2021-01-24] MEDS: Enoxaparin 40 MG/0.4 ML Syringe SUBCUT SCH (13:21)
--- NOTE | 2021-01-24 15:53 | PCM.PN ---
- General Info Date of Service: 01/24/21 Subjective Update: Ms. Suarez has been stable since yesterday, she continues to require 3 to 4 L/min of oxygen via nasal cannula. Strength is improved as has her appetite. Functional Status: Reports: Tolerating Diet, Ambulating, Urinating - Review of Systems General: Reports: Weakness, Fatigue. Denies: Fever, Chills Pulmonary: Reports: Shortness of Breath. Denies: Pleuritic Chest Pain, Cough, Sputum, Hemoptysis, Wheezing Cardiovascular: Reports: Dyspnea on Exertion. Denies: Chest Pain, Palpitations, Orthopnea, PND, Edema, Lightheadedness Gastrointestinal: Reports: No Symptoms Genitourinary: Reports: No Symptoms - Patient Data Vitals - Most Recent: Last Vital Signs Temp 96.1 F L 01/24/21 13:23 Pulse 58 L 01/24/21 13:23 Resp 18 01/24/21 13:23 BP 117/70 01/24/21 13:23 Pulse Ox 91 L 01/24/21 13:44 Weight - Most Recent: 177 lb I&O - Last 24 Hours: Intake & Output 01/24/21 01/24/21 01/24/21 06:59 14:59 22:59 Intake Total 500 1020 Balance 500 1020 Med Orders - Current: Current Medications Acetaminophen (Acetaminophen 325 Mg Tab) 650 mg PO Q4H PRN PRN Reason: Pain (Mild 1-3)/fever Benzonatate (Benzonatate 100 Mg Cap) 100 mg PO TID PRN PRN Reason: Cough Dexamethasone (Dexamethasone 4 Mg/Ml Sdv) 6 mg IVPUSH Q24H [facility] Last Admin: 01/24/21 07:36 Dose: 6 mg Documented by: Dorzolamide HCl (Dorzolamide 2% Ophth Soln 10 Ml Bottle) 0 ml EYELF TID [facility] Last Admin: 01/24/21 13:22 Dose: 1 drop Documented by: Enoxaparin Sodium (Enoxaparin 40 Mg/0.4 Ml Syringe) 40 mg SUBCUT Q24H [facility] Last Admin: 01/24/21 13:21 Dose: 40 mg Documented by: Guaifenesin/Dextromethorphan (Guaifenesin/Dextromethorphan 100-10 Mg/5 Ml Soln 10 Ml Cup) 10 ml PO Q4H PRN PRN Reason: Cough Latanoprost (Latanoprost 0.005% Ophth Soln 2.5 Ml Bottle) 0 ml EYEBOTH BEDTIME [facility] Last Admin: 01/23/21 21:02 Dose: 1 drop Documented by: Loperamide HCl (Loperamide 2 Mg Cap) 2 mg PO Q4H PRN PRN Reason: Diarrhea Lorazepam (Lorazepam 2 Mg/Ml Sdv) 0.5 mg IVPUSH Q4H PRN PRN Reason: Nausea/Vomiting Melatonin (Melatonin 3 Mg Tab) 9 mg PO BEDTIME PRN PRN Reason: Sleep Ondansetron HCl (Ondansetron 4 Mg/2 Ml Sdv) 4 mg IV Q6H PRN PRN Reason: Nausea/Vomiting Ondansetron HCl (Ondansetron 4 Mg Tab.Dis) 4 mg PO Q6H PRN PRN Reason: Nausea able to take PO Sodium Chloride (Sodium Chloride 0.9% 10 Ml Syringe) 10 ml FLUSH ASDIRECTED PRN PRN Reason: Keep Vein Open Last Admin: 01/21/21 06:27 Dose: 10 ml Documented by: Tramadol HCl (Tramadol 50 Mg Tab) 50 mg PO Q6H PRN PRN Reason: Pain (moderate 4-6) Discontinued Medications Dexamethasone (Dexamethasone 4 Mg/Ml Sdv) 6 mg IVPUSH ONETIME ONE Stop: 01/21/21 07:22 Last Admin: 01/21/21 07:53 Dose: 6 mg Documented by: Lactated Ringer's (Ringers, Lactated) 1,000 mls @ 500 mls/hr IV ASDIRECTED [facility] Last Admin: 01/21/21 06:27 Dose: 500 mls/hr Documented by: Potassium Chloride (Potassium Chloride 20 Meq Tab.Er) 40 meq PO ONETIME ONE Stop: 01/22/21 10:01 Last Admin: 01/22/21 10:14 Dose: 40 meq Documented by: - Exam Quality Assessment: Supplemental Oxygen, DVT Prophylaxis General: Alert, Oriented, Cooperative, Mild Distress Lungs: Normal Respiratory Effort, Crackles. No: Rales, Rhonchi, Wheezing Cardiovascular: Regular Rate, Regular Rhythm, No Murmurs GI/Abdominal Exam: Soft, Non-Tender, No Organomegaly, No Distention Extremities: Non-Tender, No Pedal Edema - Patient Data Result Diagrams: 01/23/21 04:15 01/23/21 04:15 Sepsis Event Note - Evaluation Sepsis Screening Result: No Definite Risk - Focused Exam Vital Signs: Vital Signs Temp Pulse Resp BP Pulse Ox 01/24/21 13:44 91 L 01/24/21 13:23 96.1 F L 58 L 18 117/70 94 L 01/24/21 10:50 90 L 01/24/21 07:29 96.5 F L 61 18 118/70 92 L - Problem List Review Problem List Initiated/Reviewed/Updated: Yes - My Orders Last 24 Hours: My Active Orders 01/25/21 05:00 CBC WITH AUTO DIFF [HEME] Timed COMPREHENSIVE METABOLIC PN,CMP [CHEM] Timed 01/25/21 05:11 CRP [C-REACTIVE PROTEIN] [CHEM] AM D Dimer [D-DIMER QUANTITATIVE] [COAG] AM - Plan Plan:: ASSESSMENT AND PLAN COVID-19 pneumonia-complicated by acute respiratory failure with hypoxia. Oxygenation has been stable since yesterday. Strength is improved and she is seems to recover more quickly after activity -Dexamethasone every 24 hours -Enoxaparin -Symptomatic management of cough and diarrhea -CRP and D-dimer every 2 days -Patient declined remdesivir -Covid isolation (symptom onset 01/14) Essential hypertension-blood pressure within normal range -Hold home medication Maintenance issues - -DVT prophylaxis-enoxaparin -GI prophylaxis-not indicated -Nutrition-regular -Cornejo catheter-not indicated CODE STATUS -full code Admission justification -this patient will be admitted for inpatient services and is medically appropriate meeting medical necessity for inpatient admission as outlined in my documentation. I reasonably expect the patient will require inpatient services that span a period time over 2 midnights. I reasonably expect this patient to be discharged or transferred within 96 hours after admission to the Critical [facility]. Disposition -I anticipate discharge home after the hospital stay Primary care provider-Karen Key NP
[2021-01-24] MEDS: Latanoprost 0.005% Ophth Soln 2.5 ML Bottle EYEBOTH SCH (21:00)
[2021-01-25] MEDS: Dexamethasone 4 MG/ML SDV IVPUSH SCH (08:36)
[2021-01-25] MEDS: Dorzolamide 2% Ophth Soln 10 ML Bottle EYELF SCH ×3 (08:41→20:44)
[2021-01-25] MEDS ORDERED: Potassium Chloride 20 MEQ Tab.ER PO ONE (09:45)
[2021-01-25] MEDS: Enoxaparin 40 MG/0.4 ML Syringe SUBCUT SCH (15:11)
--- NOTE | 2021-01-25 17:51 | PCM.PN ---
- General Info Date of Service: 01/25/21 Subjective Update: Ms. Suarez continues to require 4 L of oxygen per minute via nasal cannula, tires and desaturates with fairly minimal activity. She seems to have plateaued over the past few days with no further significant improvement in her respiratory status. Appetite does seem to be slowly improving and she has noted some increase in her strength. Functional Status: Reports: Tolerating Diet, Ambulating, Urinating - Review of Systems General: Reports: Weakness, Fatigue. Denies: Fever, Chills Pulmonary: Reports: Shortness of Breath. Denies: Pleuritic Chest Pain, Cough, S putum, Hemoptysis, Wheezing Cardiovascular: Reports: Dyspnea on Exertion. Denies: Chest Pain, Palpitations, Orthopnea, PND, Edema, Lightheadedness Gastrointestinal: Reports: No Symptoms Genitourinary: Reports: No Symptoms - Patient Data Vitals - Most Recent: Last Vital Signs Temp 96.8 F L 01/25/21 08:00 Pulse 51 L 01/25/21 15:00 Resp 18 01/25/21 15:00 BP 129/77 01/25/21 15:00 Pulse Ox 92 L 01/25/21 15:00 Weight - Most Recent: 177 lb I&O - Last 24 Hours: Intake & Output 01/25/21 01/25/21 01/25/21 06:59 14:59 22:59 Intake Total 300 Balance 300 Lab Results Last 24 Hours: Laboratory Results - last 24 hr 01/25/21 01/25/21 01/25/21 Range/Units 05:35 05:35 05:35 WBC 7.3 (4.5-11.0) K/uL RBC 3.92 (3.30-5.50) M/uL Hgb 12.3 (12.0-15.0) g/dL Hct 35.0 L (36.0-48.0) % MCV 89 (80-98) fL MCH 31 (27-31) pg MCHC 35 (32-36) % Plt Count 286 (150-400) K/uL Neut % (Auto) 80.3 H (36-66) % Lymph % (Auto) 14.1 L (24-44) % [place] % (Auto) 4.8 (2-6) % Eos % (Auto) 0.0 L (2-4) % Baso % (Auto) 0.8 (0-1) % D-Dimer, Quantitative 703.13 H (0.0-500.0) ng/mL Sodium 138 L (140-148) mmol/L Potassium 3.4 L (3.6-5.2) mmol/L Chloride 103 (100-108) mmol/L Carbon Dioxide 23 (21-32) mmol/L Anion Gap 15.4 H (5.0-14.0) mmol/L BUN 14 (7-18) mg/dL Creatinine 0.8 (0.6-1.0) mg/dL Est Cr Clr Drug Dosing 74.80 mL/min Estimated GFR (MDRD) > 60 (>60) Glucose 97 (74-106) mg/dL Calcium 8.4 L (8.5-10.1) mg/dL Total Bilirubin 0.3 (0.2-1.0) mg/dL AST 105 H (15-37) U/L ALT 203 H (12-78) U/L Alkaline Phosphatase 60 (46-116) U/L C-Reactive Protein (0.0-0.3) mg/dL Total Protein 6.5 (6.4-8.2) g/dL Albumin 2.6 L (3.4-5.0) g/dL Globulin 3.9 H (2.3-3.5) g/dL Albumin/Globulin Ratio 0.7 L (1.2-2.2) 01/25/21 Range/Units 05:35 WBC (4.5-11.0) K/uL RBC (3.30-5.50) M/uL Hgb (12.0-15.0) g/dL Hct (36.0-48.0) % MCV (80-98) fL MCH (27-31) pg MCHC (32-36) % Plt Count (150-400) K/uL Neut % (Auto) (36-66) % Lymph % (Auto) (24-44) % [place] % (Auto) (2-6) % Eos % (Auto) (2-4) % Baso % (Auto) (0-1) % D-Dimer, Quantitative (0.0-500.0) ng/mL Sodium (140-148) mmol/L Potassium (3.6-5.2) mmol/L Chloride (100-108) mmol/L Carbon Dioxide (21-32) mmol/L Anion Gap (5.0-14.0) mmol/L BUN (7-18) mg/dL Creatinine (0.6-1.0) mg/dL Est Cr Clr Drug Dosing mL/min Estimated GFR (MDRD) (>60) Glucose (74-106) mg/dL Calcium (8.5-10.1) mg/dL Total Bilirubin (0.2-1.0) mg/dL AST (15-37) U/L ALT (12-78) U/L Alkaline Phosphatase (46-116) U/L C-Reactive Protein 1.36 H (0.0-0.3) mg/dL Total Protein (6.4-8.2) g/dL Albumin (3.4-5.0) g/dL Globulin (2.3-3.5) g/dL Albumin/Globulin Ratio (1.2-2.2) Med Orders - Current: Current Medications Acetaminophen (Acetaminophen 325 Mg Tab) 650 mg PO Q4H PRN PRN Reason: Pain (Mild 1-3)/fever Benzonatate (Benzonatate 100 Mg Cap) 100 mg PO TID PRN PRN Reason: Cough Dexamethasone (Dexamethasone 4 Mg/Ml Sdv) 6 mg IVPUSH Q24H [facility] Last Admin: 01/25/21 08:36 Dose: 6 mg Documented by: Dorzolamide HCl (Dorzolamide 2% Ophth Soln 10 Ml Bottle) 0 ml EYELF TID [facility] Last Admin: 01/25/21 16:36 Dose: 1 drop Documented by: Enoxaparin Sodium (Enoxaparin 40 Mg/0.4 Ml Syringe) 40 mg SUBCUT Q24H [facility] Last Admin: 01/25/21 15:11 Dose: 40 mg Documented by: Guaifenesin/Dextromethorphan (Guaifenesin/Dextromethorphan 100-10 Mg/5 Ml Soln 10 Ml Cup) 10 ml PO Q4H PRN PRN Reason: Cough Latanoprost (Latanoprost 0.005% Ophth Soln 2.5 Ml Bottle) 0 ml EYEBOTH BEDTIME [facility] Last Admin: 01/24/21 21:00 Dose: 1 drop Documented by: Loperamide HCl (Loperamide 2 Mg Cap) 2 mg PO Q4H PRN PRN Reason: Diarrhea Lorazepam (Lorazepam 2 Mg/Ml Sdv) 0.5 mg IVPUSH Q4H PRN PRN Reason: Nausea/Vomiting Melatonin (Melatonin 3 Mg Tab) 9 mg PO BEDTIME PRN PRN Reason: Sleep Ondansetron HCl (Ondansetron 4 Mg/2 Ml Sdv) 4 mg IV Q6H PRN PRN Reason: Nausea/Vomiting Ondansetron HCl (Ondansetron 4 Mg Tab.Dis) 4 mg PO Q6H PRN PRN Reason: Nausea able to take PO Sodium Chloride (Sodium Chloride 0.9% 10 Ml Syringe) 10 ml FLUSH ASDIRECTED PRN PRN Reason: Keep Vein Open Last Admin: 01/21/21 06:27 Dose: 10 ml Documented by: Tramadol HCl (Tramadol 50 Mg Tab) 50 mg PO Q6H PRN PRN Reason: Pain (moderate 4-6) Discontinued Medications Dexamethasone (Dexamethasone 4 Mg/Ml Sdv) 6 mg IVPUSH ONETIME ONE Stop: 01/21/21 07:22 Last Admin: 01/21/21 07:53 Dose: 6 mg Documented by: Lactated Ringer's (Ringers, Lactated) 1,000 mls @ 500 mls/hr IV ASDIRECTED [facility]ANC[facility] Last Admin: 01/21/21 06:27 Dose: 500 mls/hr Documented by: Potassium Chloride (Potassium Chloride 20 Meq Tab.Er) 40 meq PO ONETIME ONE Stop: 01/22/21 10:01 Last Admin: 01/22/21 10:14 Dose: 40 meq Documented by: Potassium Chloride (Potassium Chloride 20 Meq Tab.Er) 40 meq PO ONETIME ONE Stop: 01/25/21 09:46 Last Admin: 01/25/21 10:30 Dose: 40 meq Documented by: - Exam Quality Assessment: Supplemental Oxygen, DVT Prophylaxis General: Alert, Oriented, Cooperative, Mild Distress Lungs: Clear to Auscultation, Normal Respiratory Effort. No: Crackles, Rales, Rhonchi, Wheezing Cardiovascular: Regular Rate, Regular Rhythm, No Murmurs GI/Abdominal Exam: Soft, Non-Tender, No Organomegaly, No Distention Extremities: Non-Tender, No Pedal Edema - Patient Data Lab Results Last 24 hrs: Laboratory Results - last 24 hr 01/25/21 01/25/21 01/25/21 Range/Units 05:35 05:35 05:35 WBC 7.3 (4.5-11.0) K/uL RBC 3.92 (3.30-5.50) M/uL Hgb 12.3 (12.0-15.0) g/dL Hct 35.0 L (36.0-48.0) % MCV 89 (80-98) fL MCH 31 (27-31) pg MCHC 35 (32-36) % Plt Count 286 (150-400) K/uL Neut % (Auto) 80.3 H (36-66) % Lymph % (Auto) 14.1 L (24-44) % [place] % (Auto) 4.8 (2-6) % Eos % (Auto) 0.0 L (2-4) % Baso % (Auto) 0.8 (0-1) % D-Dimer, Quantitative 703.13 H (0.0-500.0) ng/mL Sodium 138 L (140-148) mmol/L Potassium 3.4 L (3.6-5.2) mmol/L Chloride 103 (100-108) mmol/L Carbon Dioxide 23 (21-32) mmol/L Anion Gap 15.4 H (5.0-14.0) mmol/L BUN 14 (7-18) mg/dL Creatinine 0.8 (0.6-1.0) mg/dL Est Cr Clr Drug Dosing 74.80 mL/min Estimated GFR (MDRD) > 60 (>60) Glucose 97 (74-106) mg/dL Calcium 8.4 L (8.5-10.1) mg/dL Total Bilirubin 0.3 (0.2-1.0) mg/dL AST 105 H (15-37) U/L ALT 203 H (12-78) U/L Alkaline Phosphatase 60 (46-116) U/L C-Reactive Protein (0.0-0.3) mg/dL Total Protein 6.5 (6.4-8.2) g/dL Albumin 2.6 L (3.4-5.0) g/dL Globulin 3.9 H (2.3-3.5) g/dL Albumin/Globulin Ratio 0.7 L (1.2-2.2) 01/25/21 Range/Units 05:35 WBC (4.5-11.0) K/uL RBC (3.30-5.50) M/uL Hgb (12.0-15.0) g/dL Hct (36.0-48.0) % MCV (80-98) fL MCH (27-31) pg MCHC (32-36) % Plt Count (150-400) K/uL Neut % (Auto) (36-66) % Lymph % (Auto) (24-44) % [place] % (Auto) (2-6) % Eos % (Auto) (2-4) % Baso % (Auto) (0-1) % D-Dimer, Quantitative (0.0-500.0) ng/mL Sodium (140-148) mmol/L Potassium (3.6-5.2) mmol/L Chloride (100-108) mmol/L Carbon Dioxide (21-32) mmol/L Anion Gap (5.0-14.0) mmol/L BUN (7-18) mg/dL Creatinine (0.6-1.0) mg/dL Est Cr Clr Drug Dosing mL/min Estimated GFR (MDRD) (>60) Glucose (74-106) mg/dL Calcium (8.5-10.1) mg/dL Total Bilirubin (0.2-1.0) mg/dL AST (15-37) U/L ALT (12-78) U/L Alkaline Phosphatase (46-116) U/L C-Reactive Protein 1.36 H (0.0-0.3) mg/dL Total Protein (6.4-8.2) g/dL Albumin (3.4-5.0) g/dL Globulin (2.3-3.5) g/dL Albumin/Globulin Ratio (1.2-2.2) Result Diagrams: 01/25/21 05:35 01/25/21 05:35 Sepsis Event Note - Evaluation Sepsis Screening Result: No Definite Risk - Focused Exam Vital Signs: Vital Signs Temp Pulse Resp BP Pulse Ox 01/25/21 15:00 51 L 18 129/77 92 L 01/25/21 14:00 92 L 01/25/21 08:00 96.8 F L 60 18 111/72 92 L - Problem List Review Problem List Initiated/Reviewed/Updated: Yes - My Orders Last 24 Hours: My Active Orders 01/25/21 08:12 Evaluate for Home Oxygen [RT Evaluate for Home Oxygen] [RC] Click to Edit 01/26/21 05:00 BASIC METABOLIC PANEL,BMP [CHEM] Timed - Plan Plan:: ASSESSMENT AND PLAN COVID-19 pneumonia-complicated by acute respiratory failure with hypoxia. Continues to require 4 L of oxygen per minute via nasal cannula, desaturates and tires with activity -Dexamethasone every 24 hours -Enoxaparin -Symptomatic management of cough and diarrhea -CRP and D-dimer every 2 days -Patient declined remdesivir -Covid isolation (symptom onset 01/14) Essential hypertension-blood pressure within normal range -Hold home medication Maintenance issues - -DVT prophylaxis-enoxaparin -GI prophylaxis-not indicated -Nutrition-regular -Cornejo catheter-not indicated CODE STATUS -full code Admission justification -this patient will be admitted for inpatient services and is medically appropriate meeting medical necessity for inpatient admission as outlined in my documentation. I reasonably expect the patient will require inpatient services that span a period time over 2 midnights. I reasonably expect this patient to be discharged or transferred within 96 hours after admission to the [facility]. Disposition -I anticipate discharge home after the hospital stay Primary care provider-Karen Key NP
[2021-01-25] MEDS: Latanoprost 0.005% Ophth Soln 2.5 ML Bottle EYEBOTH SCH (20:44)
[2021-01-26] MEDS: Dexamethasone 4 MG/ML SDV IVPUSH SCH (07:54)
[2021-01-26] MEDS: Dorzolamide 2% Ophth Soln 10 ML Bottle EYELF SCH ×3 (08:00→21:24)
--- NOTE | 2021-01-26 14:18 | PCM.PN ---
- General Info Date of Service: 01/26/21 Subjective Update: Ms. Suarez continues to experience slow improvement in symptoms. She continues to require 4 L of oxygen per minute via nasal cannula, but is recovering more quickly following activity. Overall strength seems to be improving on a daily basis, appetite remains stable. - Review of Systems General: Reports: Weakness, Fatigue. Denies: Fever, Chills Pulmonary: Reports: Shortness of Breath. Denies: Pleuritic Chest Pain, Cough, Sputum, Hemoptysis, Wheezing Cardiovascular: Reports: Dyspnea on Exertion. Denies: Chest Pain, Palpitations, Orthopnea, PND, Edema, Lightheadedness Gastrointestinal: Reports: No Symptoms Genitourinary: Reports: No Symptoms - Patient Data Vitals - Most Recent: Last Vital Signs Temp 95.3 F L 01/26/21 11:52 Pulse 50 L 01/26/21 07:46 Resp 18 01/26/21 11:52 BP 125/76 01/26/21 11:52 Pulse Ox 91 L 01/26/21 11:52 Weight - Most Recent: 177 lb I&O - Last 24 Hours: Intake & Output 01/25/21 01/26/21 01/26/21 22:59 06:59 14:59 Intake Total 1200 450 Balance 1200 450 Lab Results Last 24 Hours: Laboratory Results - last 24 hr 01/26/21 Range/Units 05:01 Sodium 137 L (140-148) mmol/L Potassium 3.9 (3.6-5.2) mmol/L Chloride 103 (100-108) mmol/L Carbon Dioxide 23 (21-32) mmol/L Anion Gap 14.9 H (5.0-14.0) mmol/L BUN 14 (7-18) mg/dL Creatinine 0.8 (0.6-1.0) mg/dL Est Cr Clr Drug Dosing 74.80 mL/min Estimated GFR (MDRD) > 60 (>60) Glucose 88 (74-106) mg/dL Calcium 8.5 (8.5-10.1) mg/dL Med Orders - Current: Current Medications Acetaminophen (Acetaminophen 325 Mg Tab) 650 mg PO Q4H PRN PRN Reason: Pain (Mild 1-3)/fever Benzonatate (Benzonatate 100 Mg Cap) 100 mg PO TID PRN PRN Reason: Cough Dexamethasone (Dexamethasone 4 Mg/Ml Sdv) 6 mg IVPUSH Q24H [facility] Last Admin: 01/26/21 07:54 Dose: 6 mg Documented by: Dorzolamide HCl (Dorzolamide 2% Ophth Soln 10 Ml Bottle) 0 ml EYELF TID [facility] Last Admin: 01/26/21 08:00 Dose: 1 drop Documented by: Enoxaparin Sodium (Enoxaparin 40 Mg/0.4 Ml Syringe) 40 mg SUBCUT Q24H [facility] Last Admin: 01/25/21 15:11 Dose: 40 mg Documented by: Guaifenesin/Dextromethorphan (Guaifenesin/Dextromethorphan 100-10 Mg/5 Ml Soln 10 Ml Cup) 10 ml PO Q4H PRN PRN Reason: Cough Hydrochlorothiazide (Hydrochlorothiazide 25 Mg Tab) 25 mg PO DAILY [facility] Latanoprost (Latanoprost 0.005% Ophth Soln 2.5 Ml Bottle) 0 ml EYEBOTH BEDTIME [facility] Last Admin: 01/25/21 20:44 Dose: 1 drop Documented by: Lisinopril (Lisinopril 20 Mg Tab) 20 mg PO DAILY [facility] Loperamide HCl (Loperamide 2 Mg Cap) 2 mg PO Q4H PRN PRN Reason: Diarrhea Lorazepam (Lorazepam 2 Mg/Ml Sdv) 0.5 mg IVPUSH Q4H PRN PRN Reason: Nausea/Vomiting Melatonin (Melatonin 3 Mg Tab) 9 mg PO BEDTIME PRN PRN Reason: Sleep Ondansetron HCl (Ondansetron 4 Mg/2 Ml Sdv) 4 mg IV Q6H PRN PRN Reason: Nausea/Vomiting Ondansetron HCl (Ondansetron 4 Mg Tab.Dis) 4 mg PO Q6H PRN PRN Reason: Nausea able to take PO Sodium Chloride (Sodium Chloride 0.9% 10 Ml Syringe) 10 ml FLUSH ASDIRECTED PRN PRN Reason: Keep Vein Open Last Admin: 01/21/21 06:27 Dose: 10 ml Documented by: Tramadol HCl (Tramadol 50 Mg Tab) 50 mg PO Q6H PRN PRN Reason: Pain (moderate 4-6) Discontinued Medications Dexamethasone (Dexamethasone 4 Mg/Ml Sdv) 6 mg IVPUSH ONETIME ONE Stop: 01/21/21 07:22 Last Admin: 01/21/21 07:53 Dose: 6 mg Documented by: Lactated Ringer's (Ringers, Lactated) 1,000 mls @ 500 mls/hr IV ASDIRECTED [facility] Last Admin: 01/21/21 06:27 Dose: 500 mls/hr Documented by: Non-Formulary Medication (Lisinopril/Hydrochlorothiazide [Lisinopril-Hctz 20-25 Mg Tab]) 1 each PO DAILY [facility] Potassium Chloride (Potassium Chloride 20 Meq Tab.Er) 40 meq PO ONETIME ONE Stop: 01/22/21 10:01 Last Admin: 01/22/21 10:14 Dose: 40 meq Documented by: Potassium Chloride (Potassium Chloride 20 Meq Tab.Er) 40 meq PO ONETIME ONE Stop: 01/25/21 09:46 Last Admin: 01/25/21 10:30 Dose: 40 meq Documented by: - Exam Quality Assessment: Supplemental Oxygen, DVT Prophylaxis General: Alert, Oriented, Cooperative, Mild Distress Lungs: Clear to Auscultation, Normal Respiratory Effort. No: Crackles, Rales, Rhonchi, Wheezing Cardiovascular: Regular Rate, Regular Rhythm, No Murmurs GI/Abdominal Exam: Soft, Non-Tender, No Organomegaly, No Distention Extremities: Non-Tender, No Pedal Edema - Patient Data Lab Results Last 24 hrs: Laboratory Results - last 24 hr 01/26/21 Range/Units 05:01 Sodium 137 L (140-148) mmol/L Potassium 3.9 (3.6-5.2) mmol/L Chloride 103 (100-108) mmol/L Carbon Dioxide 23 (21-32) mmol/L Anion Gap 14.9 H (5.0-14.0) mmol/L BUN 14 (7-18) mg/dL Creatinine 0.8 (0.6-1.0) mg/dL Est Cr Clr Drug Dosing 74.80 mL/min Estimated GFR (MDRD) > 60 (>60) Glucose 88 (74-106) mg/dL Calcium 8.5 (8.5-10.1) mg/dL Result Diagrams: 01/25/21 05:35 01/26/21 05:01 Sepsis Event Note - Evaluation Sepsis Screening Result: No Definite Risk - Focused Exam Vital Signs: Vital Signs Temp Pulse Resp BP Pulse Ox 01/26/21 11:52 95.3 F L 18 125/76 91 L 01/26/21 07:46 50 L 16 124/72 92 L 01/26/21 04:00 95.7 F L 52 L 18 133/80 91 L - Problem List Review Problem List Initiated/Reviewed/Updated: Yes - My Orders Last 24 Hours: My Active Orders 01/26/21 13:00 hydroCHLOROthiazide 25 mg PO DAILY lisinopriL [Prinivil] 20 mg PO DAILY - Plan Plan:: ASSESSMENT AND PLAN COVID-19 pneumonia-complicated by acute respiratory failure with hypoxia. Continues to require 4 L of oxygen per minute via nasal cannula, recovering more quickly following activity -Dexamethasone every 24 hours -Enoxaparin -Symptomatic management of cough and diarrhea -CRP and D-dimer every 2 days -Patient declined remdesivir -Covid isolation (symptom onset 01/14) Essential hypertension-blood pressure within normal range -Hold home medication Maintenance issues - -DVT prophylaxis-enoxaparin -GI prophylaxis-not indicated -Nutrition-regular -Cornejo catheter-not indicated CODE STATUS -full code Admission justification -this patient will be admitted for inpatient services and is medically appropriate meeting medical necessity for inpatient admission as outlined in my documentation. I reasonably expect the patient will require inpatient services that span a period time over 2 midnights. I reasonably expect this patient to be discharged or transferred within 96 hours [facility] Disposition -I anticipate discharge home tomorrow Primary care provider-Karen Key NP
[2021-01-26] MEDS: Hydrochlorothiazide 25 MG Tab PO SCH (14:38)
[2021-01-26] MEDS: Lisinopril 20 MG Tab PO SCH (14:38)
[2021-01-26] MEDS: Enoxaparin 40 MG/0.4 ML Syringe SUBCUT SCH (14:38)
[2021-01-26] MEDS: Latanoprost 0.005% Ophth Soln 2.5 ML Bottle EYEBOTH SCH (21:24)
[2021-01-27] MEDS: Lisinopril 20 MG Tab PO SCH (08:39)
[2021-01-27] MEDS: Dexamethasone 4 MG/ML SDV IVPUSH SCH (08:39)
[2021-01-27] MEDS: Hydrochlorothiazide 25 MG Tab PO SCH (08:40)
[2021-01-27] MEDS: Dorzolamide 2% Ophth Soln 10 ML Bottle EYELF SCH (08:40)
--- NOTE | 2021-01-27 12:23 | PCM.DCSUM1 ---
Discharge Summary - Hospital Course Brief History: Ms. Suarez is a 65-year-old woman who was admitted through the emergency department with weakness, shortness of breath, and hypoxia, secondary to COVID-19 pneumonia. - Discharge Data Discharge Date: 01/27/21 Discharge Disposition: Home, Self-Care 01 Condition: Fair - Referral to Home Health Primary Care Physician: PCP None - Patient Summary/Data Hospital Course: Ms. Suarez presented to the emergency room with progressive shortness of breath, weakness, diarrhea and a syncopal episode this morning. She reports onset of weakness, fatigue, cough and shortness of breath on Friday, 1 week ago. Symptoms progressed throughout the course of the week and have become more and more bothersome. She has a dry cough and some pleuritic type chest pain especially with coughing. She collapsed this morning going to the bathroom and this is why the ambulance was summoned. She has not previously been vaccinated. Work-up in the emergency room revealed Covid pneumonia with acute respiratory failure. Initially requiring 4 L of oxygen but has been weaned down since then. She did receive dexamethasone but declined remdesivir. After admission she was continued on supplemental oxygen at one-point did require up to 7 L/min. Continued on the dexamethasone and did not require further medical intervention. She gradually improved during hospitalization and by the time of discharge was requiring 3 L of oxygen per minute via nasal cannula. Overall strength and appetite had improved. She will be discharged home on 3 L of oxygen per minute via nasal cannula. She was qualified for home oxygen prior to discharge. Activity will be as tolerated and she will resume her usual diet. Follow-up appointment will be scheduled with her primary care provider within 1 week. - Patient Instructions Diet: Usual Diet as Tolerated Activity: As Tolerated - Discharge Plan *PRESCRIPTION DRUG MONITORING PROGRAM REVIEWED*: Not Applicable *COPY OF PRESCRIPTION DRUG MONITORING REPORT IN PATIENT AYAKA: Not Applicable Home Medications: Home Meds Dorzolamide HCl/Pf [Dorzolamide 2% Eye Drop] 1 ml EYELF TID 01/21/21 [History] Latanoprost/Pf [Latanoprost 0.005% Eye Drop] 1 ml EYEBOTH BEDTIME 01/21/21 [History] Lisinopril/Hydrochlorothiazide [Lisinopril-Hctz 20-25 mg Tab] 1 each PO DAILY 01/21/21 [History] Oxygen Therapy Mode: Nasal Cannula Oxygen Flow Rate (L/min): 3 Referrals: Karen Key CNM [Mid-] - 02/05/21 1:30 pm - Discharge Summary/Plan Comment DC Time >30 min.: No Total # of Minutes for Discharge Time: 15 - Patient Data Vitals - Most Recent: Last Vital Signs Temp 95.7 F L 01/27/21 08:00 Pulse 57 L 01/27/21 08:00 Resp 16 01/27/21 08:00 BP 111/68 01/27/21 08:39 Pulse Ox 93 L 01/27/21 08:00 Weight - Most Recent: 177 lb I&O - Last 24 hours: Intake & Output 01/26/21 01/27/21 01/27/21 22:59 06:59 14:59 Intake Total 240 Balance 240 Med Orders - Current: Current Medications Acetaminophen (Acetaminophen 325 Mg Tab) 650 mg PO Q4H PRN PRN Reason: Pain (Mild 1-3)/fever Benzonatate (Benzonatate 100 Mg Cap) 100 mg PO TID PRN PRN Reason: Cough Dexamethasone (Dexamethasone 4 Mg/Ml Sdv) 6 mg IVPUSH Q24H [facility] Last Admin: 01/27/21 08:39 Dose: 6 mg Documented by: Dorzolamide HCl (Dorzolamide 2% Ophth Soln 10 Ml Bottle) 0 ml EYELF TID [facility] Last Admin: 01/27/21 08:40 Dose: 1 drop Documented by: Enoxaparin Sodium (Enoxaparin 40 Mg/0.4 Ml Syringe) 40 mg SUBCUT Q24H [facility] Last Admin: 01/26/21 14:38 Dose: 40 mg Documented by: Guaifenesin/Dextromethorphan (Guaifenesin/Dextromethorphan 100-10 Mg/5 Ml Soln 10 Ml Cup) 10 ml PO Q4H PRN PRN Reason: Cough Hydrochlorothiazide (Hydrochlorothiazide 25 Mg Tab) 25 mg PO DAILY [facility] Last Admin: 01/27/21 08:40 Dose: 25 mg Documented by: Latanoprost (Latanoprost 0.005% Ophth Soln 2.5 Ml Bottle) 0 ml EYEBOTH BEDTIME [facility] Last Admin: 01/26/21 21:24 Dose: 1 drop Documented by: Lisinopril (Lisinopril 20 Mg Tab) 20 mg PO DAILY [facility] Last Admin: 01/27/21 08:39 Dose: 20 mg Documented by: Loperamide HCl (Loperamide 2 Mg Cap) 2 mg PO Q4H PRN PRN Reason: Diarrhea Lorazepam (Lorazepam 2 Mg/Ml Sdv) 0.5 mg IVPUSH Q4H PRN PRN Reason: Nausea/Vomiting Melatonin (Melatonin 3 Mg Tab) 9 mg PO BEDTIME PRN PRN Reason: Sleep Ondansetron HCl (Ondansetron 4 Mg/2 Ml Sdv) 4 mg IV Q6H PRN PRN Reason: Nausea/Vomiting Ondansetron HCl (Ondansetron 4 Mg Tab.Dis) 4 mg PO Q6H PRN PRN Reason: Nausea able to take PO Sodium Chloride (Sodium Chloride 0.9% 10 Ml Syringe) 10 ml FLUSH ASDIRECTED PRN PRN Reason: Keep Vein Open Last Admin: 01/21/21 06:27 Dose: 10 ml Documented by: Tramadol HCl (Tramadol 50 Mg Tab) 50 mg PO Q6H PRN PRN Reason: Pain (moderate 4-6) Discontinued Medications Dexamethasone (Dexamethasone 4 Mg/Ml Sdv) 6 mg IVPUSH ONETIME ONE Stop: 01/21/21 07:22 Last Admin: 01/21/21 07:53 Dose: 6 mg Documented by: Lactated Ringer's (Ringers, Lactated) 1,000 mls @ 500 mls/hr IV ASDIRECTED [facility] Last Admin: 01/21/21 06:27 Dose: 500 mls/hr Documented by: Non-Formulary Medication (Lisinopril/Hydrochlorothiazide [Lisinopril-Hctz 20-25 Mg Tab]) 1 each PO DAILY [facility] Potassium Chloride (Potassium Chloride 20 Meq Tab.Er) 40 meq PO ONETIME ONE Stop: 01/22/21 10:01 Last Admin: 01/22/21 10:14 Dose: 40 meq Documented by: Potassium Chloride (Potassium Chloride 20 Meq Tab.Er) 40 meq PO ONETIME ONE Stop: 01/25/21 09:46 Last Admin: 01/25/21 10:30 Dose: 40 meq Documented by: - Exam General: Reports: Alert, Oriented, Cooperative, No Acute Distress Lungs: Reports: Crackles. Denies: Rales, Rhonchi, Wheezing Cardiovascular: Reports: Regular Rate, Regular Rhythm, No Murmurs GI/Abdominal Exam: Soft, Non-Tender, No Organomegaly, No Distention Extremities: Non-Tender, No Pedal Edema
== END 2021-01-27 13:45 | disposition home or self-care (01) | DRG 177 ==
LOC: JP.ED 05:36 → JP.2SS 10:38
PROVIDERS: ADMIT Internal Medicine; ATTEND Hospitalist
PROC: 3E0333Z Introduction of Anti-inflammatory into Peripheral Vein, Percutaneous Approach (ICD-10-PCS; principal; 2021-01-21)
PROC: 8E0ZXY6 Isolation (ICD-10-PCS; 2021-01-21)
DX: U07.1 COVID-19 (principal); J12.82 Pneumonia due to coronavirus disease 2019; R55 Syncope and collapse; A09 Infectious gastroenteritis and colitis, unspecified; J96.01 Acute respiratory failure with hypoxia; I10 Essential (primary) hypertension; I95.89 Other hypotension; R09.02 Hypoxemia; H40.9 Unspecified glaucoma; Z87.891 Personal history of nicotine dependence; Z86.19 Personal history of other infectious and parasitic diseases; Z86.16 Personal history of COVID-19; Z98.49 Cataract extraction status, unspecified eye; Z79.899 Other long term (current) drug therapy; Z98.890 Other specified postprocedural states; E86.0 Dehydration; E86.1 Hypovolemia
CPT/HCPCS: 0241U; 36415; 71045; 80048; 80053; 82728; 83605; 83615; 84145; 85025; 85027; 85379; 86140; 93005; 94762; 96374; 99285; A9270-GY; J1100; J1650; J7120